=== PATIENT | female | born 1990 | race Asian ===

== ENCOUNTER 2022-04-19 22:35 | Emergency (ER) | payer OTHER ==
[~2022-04-19] VITALS: Ht 165.1 cm; Wt 46.3 kg
[2022-04-19 22:49] VITALS: BP 128/70
[2022-04-19] MEDS ORDERED: ONDANSETRON 4 MG/2 ML VIAL IVP ONE (22:55)
[2022-04-19] MEDS ORDERED: NACL 0.9% 1,000 ML IV ONE (22:55)
--- NOTE | 2022-04-19 22:59 | NUR ---
PT W/C ASSISTED TO BED #5
[2022-04-19 23:14] LABS: BASOPHILS % (AUTO) 0.6 % (0.0-2.0); EOSINOPHILS % (AUTO) 0.1 % (0.0-4.0); HEMATOCRIT 41.6 % (36-48); LYMPHOCYTES # (AUTO) 1.5 K/uL (2.5-16.5); LYMPHOCYTES % (AUTO) 23.3 % (20.5-51.1); MEAN CORPUSCULAR HEMOGLOBIN 26 pg (27-31); MEAN CORPUSCULAR HGB CONC 34 g/dL (33-37); MEAN CORPUSCULAR VOLUME 77.6 fL (80-94); MONOCYTES # (AUTO) 0.8 K/uL (0.8-1.0); MONOCYTES % (AUTO) 12.4 % (1.7-9.3); NEUTROPHILS # (AUTO) 4.1 K/uL (1.8-7.7); NEUTROPHILS % (AUTO) 63.6 % (42.2-75.2); PLATELET COUNT (AUTO) 259 K/uL (140-450); RED BLOOD CELL COUNT(AUTO) 5.36 MIL/uL (4.20-5.40); RED CELL DISTRIBUTION WIDTH 16.1 % (11.6-13.7); WHITE BLOOD COUNT (AUTO) 6.4 K/uL (4.8-10.8)
[2022-04-19 23:27] LABS: ANION GAP 20.7 (8-16); CARBON DIOXIDE 21.6 mmol/L (21-32); CREATININE 0.8 mg/dL (0.6-1.3); POTASSIUM 3.3 mmol/L (3.5-5.1); TOTAL BILIRUBIN 0.3 mg/dL (0.0-1.0)
--- NOTE | 2022-04-19 23:43 | NUR ---
PT UP TO BATHROOM WITH STEADY GAIT
--- NOTE | 2022-04-19 23:57 | NUR ---
31YR OLD FEMALE BIB SELF C/O V/D ABD PAIN XTODAY. VOMITING STARTED TONIGHT. RLQ PAIN 9/10 SHARP. PT DOES HAVE A COUGH STATES BEING SICK SINCE WEDNESDAY WITH A COUGH AND FEVER. PT IS AFEBRILE CURRENTLY. A&OX4 RESP EVEN AND UNLABORED. PT ON BEDSIDE MONITOR. SKIN WARM AND DRY.
--- NOTE | 2022-04-19 23:57 | NUR ---
PT TO CT
[2022-04-20 00:17] LABS: APPEARANCE,URINE SL CLOUDY (CLEAR); BILIRUBIN,URINE NEGATIVE (NEGATIVE); BLOOD, URINE 1+ (NEGATIVE); COLOR,URINE YELLOW (YELLOW); LEUKOCYTE ESTERASE ,URINE NEGATIVE (NEGATIVE); NITRITE, URINE NEGATIVE (NEGATIVE); UGLUCOSE NEGATIVE (NEGATIVE)
[2022-04-20 00:22] LABS: WBC,URINE 0-5 /HPF (0-5)
[2022-04-20] MEDS ORDERED: cefTRIAXone 1,000 MG VIAL ONE (01:50)
[2022-04-20] MEDS ORDERED: ONDA-188 SL (02:08)
[2022-04-20] MEDS ORDERED: CIPR500T4 PO (02:08)
[2022-04-20 02:20] VITALS: BP 128/70
--- NOTE | 2022-04-20 02:20 | NUR ---
Patient discharged with v/s stable. Written and verbal after care instructions given and explained. Patient alert, oriented and verbalized understanding of instructions. Ambulatory with steady gait. All questions addressed prior to discharge. ID band removed. Patient advised to follow up with PMD. Rx of CIPRO ZOFRAN ODT given. Patient educated on indication of medication including possible reaction and side effects. Opportunity to ask questions provided and answered.
--- NOTE | 2022-04-20 02:26 | NUR ---
The patient's care was reviewed and supervised by Ambika Bird RN.
== END 2022-04-20 02:20 | disposition home or self-care (01) ==
LOC: MED 22:35
DX: N39.0 Urinary tract infection, site not specified (principal)
CPT/HCPCS: 36415; 74176; 80053; 81001; 81025; 82150; 83690; 85025; 87040; 87086; 96361; 96365; 96375; 99285; J0696; J2405

== ENCOUNTER 2022-04-25 22:50 | Emergency (ER) | payer OTHER ==
[~2022-04-25 22:50] MED LIST: CIPR500T4 PO; ONDA-188 SL
--- NOTE | 2022-04-25 23:14 | NUR ---
ATTEMPTED TO CALL PATIENT FOR TRIAGE WITH NO SUCCESS
--- NOTE | 2022-04-25 23:36 | NUR ---
ATTEMPTED TO CALL PATIENT FOR TRIAGE WITH NO SUCCESS
--- NOTE | 2022-04-25 23:36 | NUR ---
LWBS [id number]
== END 2022-04-25 23:14 | disposition left against medical advice (07) ==
LOC: MED 22:50
DX: R07.9 Chest pain, unspecified (principal); Z53.21 Procedure and treatment not carried out due to patient leaving prior to being seen by health care provider

== ENCOUNTER 2022-04-26 00:08 | Emergency (ER) | payer OTHER ==
[~2022-04-26] VITALS: Ht 165.1 cm; Wt 45.4 kg
[2022-04-26 00:18] VITALS: BP 145/91
[2022-04-26 01:27] LABS: APPEARANCE,URINE CLEAR (CLEAR); BILIRUBIN,URINE NEGATIVE (NEGATIVE); BLOOD, URINE NEGATIVE (NEGATIVE); COLOR,URINE YELLOW (YELLOW); LEUKOCYTE ESTERASE ,URINE NEGATIVE (NEGATIVE); NITRITE, URINE NEGATIVE (NEGATIVE); UGLUCOSE NEGATIVE (NEGATIVE)
[2022-04-26 01:28] LABS: ALBUMIN 4.1 g/dL (3.4-5.0); ANION GAP 15.5 (8-16); CARBON DIOXIDE 24.8 mmol/L (21-32); CREATININE 0.8 mg/dL (0.6-1.3); POTASSIUM 3.3 mmol/L (3.5-5.1); TOTAL BILIRUBIN 0.3 mg/dL (0.0-1.0)
--- NOTE | 2022-04-26 01:36 | NUR ---
ERMD ASSESSING PATIENT
--- NOTE | 2022-04-26 01:39 | NUR ---
PT STATES SHE IS UNCOMFORTABLE AND SHE IS A PT TOO. PT WAS OFFERED TO LIE IN BED 07 WHILE SHE WAITS FOR HER RESULTS. Addendum: 04/26/22 at 0141 by [employer] PT DECLINED OFFER AND STATED THAT SHE WILL WAIT IN HER CAR.
[2022-04-26 02:10] LABS: BASOPHILS % (AUTO) 0.4 % (0.0-2.0); EOSINOPHILS % (AUTO) 0.2 % (0.0-4.0); HEMATOCRIT 40.7 % (36-48); HEMOGLOBIN 13.3 g/dL (12.0-16.0); LYMPHOCYTES # (AUTO) 2.6 K/uL (2.5-16.5); LYMPHOCYTES % (AUTO) 33.9 % (20.5-51.1); MEAN CORPUSCULAR HEMOGLOBIN 26 pg (27-31); MEAN CORPUSCULAR HGB CONC 33 g/dL (33-37); MEAN CORPUSCULAR VOLUME 78.6 fL (80-94); MONOCYTES # (AUTO) 0.6 K/uL (0.8-1.0); MONOCYTES % (AUTO) 8.3 % (1.7-9.3); NEUTROPHILS # (AUTO) 4.3 K/uL (1.8-7.7); NEUTROPHILS % (AUTO) 57.2 % (42.2-75.2); PLATELET COUNT (AUTO) 369 K/uL (140-450); RED BLOOD CELL COUNT(AUTO) 5.18 MIL/uL (4.20-5.40); RED CELL DISTRIBUTION WIDTH 16.2 % (11.6-13.7); WHITE BLOOD COUNT (AUTO) 7.6 K/uL (4.8-10.8)
--- NOTE | 2022-04-26 03:11 | NUR ---
Dr. Douglas examining patient.
[2022-04-26 03:22] VITALS: BP 132/89
--- NOTE | 2022-04-26 03:22 | NUR ---
Patient discharged with v/s stable. Written and verbal after care instructions given and explained. Patient verbalized understanding. Ambulatory with steady gait. All questions addressed prior to discharge. Advised to follow up with PMD.
== END 2022-04-26 03:22 | disposition home or self-care (01) ==
LOC: MED 00:08
DX: R07.9 Chest pain, unspecified (principal); N12 Tubulo-interstitial nephritis, not specified as acute or chronic
CPT/HCPCS: 36415; 80053; 81003; 81025; 84484; 85025; 93005; 99284